=== PATIENT | male | born 1970 | race African-American/Black ===

== ENCOUNTER 2018-04-05 04:26 | Emergency (ER) | payer OTHER ==
[~2018-04-05] VITALS: Ht 177.8 cm; Wt 83.9 kg
[2018-04-05] MEDS ORDERED: CYCL5TAB PO (05:22)
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
== END 2018-04-05 05:40 | disposition home or self-care (01) ==
LOC: ER 04:26
DX: R03.0 Elevated blood-pressure reading, without diagnosis of hypertension (principal); M54.2 Cervicalgia; M54.6 Pain in thoracic spine; E78.00 Pure hypercholesterolemia, unspecified; I10 Essential (primary) hypertension; V43.52XA Car driver injured in collision with other type car in traffic accident, initial encounter; Z88.0 Allergy status to penicillin; Y93.89 Activity, other specified; Y92.410 Unspecified street and highway as the place of occurrence of the external cause; Y99.8 Other external cause status
CPT/HCPCS: 96372; 99283; J2060

== ENCOUNTER 2018-09-28 08:29 | Emergency (ER) | payer SELFPAY ==
[~2018-09-28] VITALS: Ht 177.8 cm; Wt 99.8 kg
[~2018-09-28 08:29] MED LIST: CYCL5TAB PO
[2018-09-28] MEDS ORDERED: HYDROcodone/APAP 5/325MG 1 TAB TABLET PO ONE (08:45)
--- NOTE | 2018-09-28 09:49 | RAD ---
EXT NON VASC RIGHT History: Palpable nodules of the right axillary region Comparison: None. Findings: Multiple sonographic images of the right axillary region are submitted. There is a small 0.5 x 0.6 x 0.5 severe hypoechoic lesion with internal echoes, no internal vascularity. There is another 0.6 x 0.4 x 0.4 cm lesion with internal echoes, no internal vascularity. Reportedly there were 2 other areas which were sites of palpable concern without ultrasound correlate. Impression: 1. There are 2 small avascular either solid lesions or complex cystic lesions of the right axillary region at site of palpable concern, 2 other areas of palpable concern without ultrasound correlate. Electronically signed by: Akil Stiles MD (09/28/2018 9:46 AM) [id number]
[2018-09-28 10:00] VITALS: BP 141/90
[2018-09-28] MEDS ORDERED: SULF1TAB24 PO (10:08)
--- NOTE | 2018-09-28 10:12 | PHYS DOC ---
Past Medical History Past Medical History: High Cholesterol, Hypertension (TRUDY STEINBERG APRN) Past Surgical History: Other Additional Past Surgical Histo: L ACHILLES TENDON REPAIR (TRUDY STEINBERG APRN) Alcohol Use: Rarely Drug Use: None (TRUDY STEINBERG APRN) Adult General Chief Complaint Chief Complaint: OTHER COMPLAINTS [facility] HPI Patient is a 48 year old male who presents with 4-5 tender cyst-like lesions under his right axilla. The patient has no prior history of this condition. He denies fever, nausea or vomiting. There is no drainage noted to the area. (TRUDY STEINBERG APRN) Review of Systems Review of Systems Constitutional: Denies fever or chills [] Respiratory: Denies cough or shortness of breath [] Cardiovascular: No additional information not addressed in HPI [] GI: Denies abdominal pain, nausea, vomiting, bloody stools or diarrhea [] : Denies dysuria or hematuria [] Musculoskeletal: Denies back pain or joint pain [] Integument: See history of present illness Neurologic: Denies headache, focal weakness or sensory changes [] Endocrine: Denies polyuria or polydipsia [] All other systems were reviewed and found to be within normal limits, except as documented in this note. (TRUDY STEINBERG APRN) Current Medications Current Medications Current Medications Medications (Trade) Dose Ordered Sig/Tyler Start Time Stop Time Status Last Admin Dose Admin Acetaminophen/ Hydrocodone Bitart (Lortab 5/325) 1 tab 1X ONCE 09/28/18 08:45 09/28/18 08:46 DC 09/28/18 08:56 1 TAB (RODERICK YANG MD) Allergies Allergies Allergies Coded Allergies Type Severity Reaction Last Updated Verified Penicillins Allergy Mild UNKNOWN 04/05/18 Yes (RODERICK YANG MD) Physical Exam Physical Exam Constitutional: Well developed, well nourished, no acute distress, non-toxic appearance. [] Cardiovascular:Heart rate regular rhythm, no murmur [] Lungs & Thorax: Bilateral breath sounds clear to auscultation [] Abdomen: Bowel sounds normal, soft, no tenderness, no masses, no pulsatile masses. [] Skin: There are 5 tender pea sized lesions to the right axilla with no erythema or induration Back: No tenderness, no CVA tenderness. [] Extremities: No tenderness, no cyanosis, no clubbing, ROM intact, no edema. [] Neurologic: Alert and oriented X 3, normal motor function, normal sensory function, no focal deficits noted. [] Psychologic: Affect normal, judgement normal, mood normal. [] (TRUDY STEINBERG APRN) Current Patient Data Vital Signs Vital Signs Date Time Temp Pulse Resp B/P (MAP) Pulse Ox O2 Delivery O2 Flow Rate FiO2 09/28/18 10:00 64 18 141/90 (107) 98 Room Air 09/28/18 08:41 98.5 98.5 (RODERICK YANG MD) EKG EKG [] (TRUDY STEINBERG APRN) Radiology/Procedures Radiology/Procedures []PATIENT: ALLIE MCCABE DACCOUNT: [id number]#: [id number] : 1970 LOCATION: ER AGE: 48 SEX: M EXAM STATUS: REG ER ORD. PHYSICIAN: TRUDY STEINBERG APRN REASON: right axilla, multiple nodules PROCEDURE: EXT NON VASC RIGHT EXT NON VASC RIGHT History: Palpable nodules of the right axillary region Comparison: None. Findings: Multiple sonographic images of the right axillary region are submitted. There is a small 0.5 x 0.6 x 0.5 severe hypoechoic lesion with internal echoes, no internal vascularity. There is another 0.6 x 0.4 x 0.4 cm lesion with internal echoes, no internal vascularity. Reportedly there were 2 other areas which were sites of palpable concern without ultrasound correlate. Impression: 1. There are 2 small avascular either solid lesions or complex cystic lesions of the right axillary region at site of palpable concern, 2 other areas of palpable concern without ultrasound correlate. Electronically signed by: Lucinda Best MD (09/28/2018 9:46 AM) [id number] DICTATED and SIGNED BY: LUCINDA BEST MD DATE: 09/28/18 0946 (TRUDY STEINBERG APRN) Course & Med Decision Making Course & Med Decision Making Pertinent Labs and Imaging studies reviewed. (See chart for details) []The patient is to take Bactrim DS. He is to follow-up with his primary care provider for further evaluation and possible cyst removal. (TRUDY STEINBERG APRN) Course & Med Decision Making Staff Physician Addendum: I was working in the ER during the course of this patient's visit. I was available for consultation as needed, but I was not directly involved in the care of this patient. (RODERICK YANG MD) Dragon Disclaimer Dragon Disclaimer This electronic medical record was generated, in whole or in part, using a voice recognition dictation system. (TRUDY STEINBERG APRN) Departure Departure Impression: Primary Impression: Axillary adenitis Disposition: HOME, SELF-CARE Condition: STABLE Referrals: JJ KOROMA PA-C (PCP) Patient Instructions: Cyst Removal Additional Instructions: Take antibiotic as prescribed. Follow-up with your primary care provider in one week for recheck and possible cyst removal. If worsening return to the emergency department. You may take ibuprofen or Tylenol for pain. Use hot compresses several times daily. Scripts Sulfamethoxazole/Trimethoprim (BACTRIM DS TABLET) 1 Each Tablet 1 TAB PO BID for axillary cysts, #20 TAB Prov: TRUDY STEINBERG APRN 09/28/18 TRUDY STEINBERG APRN Sep 28, 2018 10:12 RODERICK YANG MD Sep 29, 2018 18:10
== END 2018-09-28 10:28 | disposition home or self-care (01) ==
LOC: ER 08:29
DX: L03.121 Acute lymphangitis of right axilla (principal); E78.00 Pure hypercholesterolemia, unspecified; I10 Essential (primary) hypertension; Z88.0 Allergy status to penicillin
CPT/HCPCS: 76881; 99284-25